=== PATIENT | male | born 1970 | race Caucasian/White ===

== ENCOUNTER 2016-09-30 03:26 | Inpatient (IN) | payer BC ==
[2016-09-30] MEDS ORDERED: ONDANSETRON 4 MG/2 ML VIAL ONE (03:36)
[2016-09-30] MEDS ORDERED: NORMAL SALINE 10 ML SYRINGE FLUSH IVP PRN ×2 (03:45→06:35)
[2016-09-30] MEDS ORDERED: Pantoprazole Inj 40 MG in Normal Saline Flush 10 ML IVP ONE (03:45)
[2016-09-30] MEDS ORDERED: HYDROmorphone 2 MG/1 ML IVP ONE (03:45)
[2016-09-30] MEDS ORDERED: Sodium Chloride 0.9% 1,000 ML PRIMARY IV ONE (03:45)
[2016-09-30] MEDS ORDERED: ONDANSETRON 4 MG/2 ML VIAL IVP ONE (03:45)
[2016-09-30] MEDS ORDERED: HYDROmorphone 2 MG/1 ML ONE (03:48)
[2016-09-30 03:53] LABS: EOSINOPHILS % (AUTO) 4.2 % (0-8); HEMATOCRIT 45.7 % (42.0-52.0); HEMOGLOBIN 15.8 g/dL (14.0-18.0); LYMPHOCYTES # (AUTO) 3.56 10*3/uL; MEAN CORPUSCULAR HEMOGLOBIN 29.5 PG (27-31); MEAN CORPUSCULAR HGB CONC 34.6 g/dL (33-37); MEAN CORPUSCULAR VOLUME 85.3 FL (80-90); MEAN PLATELET VOLUME 9.5 FL (7.4-12.2); MONOCYTES # (AUTO) 0.63 10*3/UL (0.3-0.8); MONOCYTES % (AUTO) 6.6 % (5-15); NEUTROPHILS # (AUTO) 4.89 10*3/UL; NEUTROPHILS % (AUTO) 50.9 % (50-80); PLATELET MORPHOLOGY COMMENT NORMAL MORPHOLOGY (NORM); RBC MORPHOLOGY COMMENT NORMAL MORPHOLOGY (NORM); RED BLOOD COUNT 5.36 10^6/uL (4.70-6.10); WBC MORPHOLOGY COMMENT NORMAL MORPHOLOGY (NORM)
[2016-09-30 03:59] LABS: BLOOD UREA NITROGEN 13 mg/dL (7-22); BUN/CREATININE RATIO 14.44 (6-20); CALCIUM 9.4 mg/dL (8.7-10.7); EST GLOMERULAR FILTRATION > 60 (>60 ml/min/1.73m(2)); LIPASE 922 IU/L (23-300); SERUM ALBUMIN 4.3 g/dL (3.5-4.8)
[2016-09-30 04:55] LABS: BILIRUBIN,URINE NEGATIVE (NEG); COLOR,URINE YELLOW; GLUCOSE, URINE (UA) NEGATIVE (NEG); NITRATE,URINE NEGATIVE (NEG); OCCULT BLOOD,URINE NEGATIVE (NEG); PROTEIN,URINE NEGATIVE (NEG); URINE SAMPLE TYPE CLEAN CATCH URINE; UROBILINOGEN,URINE 0.2 EU/dL (0.2)
[2016-09-30 04:56] LABS: CLARITY,URINE CLEAR (CLEAR)
--- NOTE | 2016-09-30 06:15 | PDOC ---
Abdomen/Flank HPI - General Chief Complaint: Abdomen Pain Stated Complaint: Right lower quadrant pain Date Seen by Provider: 09/30/16 Time Seen by Provider: 03:31 Source: POSITIVE: Patient, Spouse Exam Limitations: POSITIVE: No limitations Nurse's Notes Reviewed & Considered: Yes - History of Present Illness Initial Comments: The patient is a 45-year-old male. He presents to the emergency room complaining of an approximately 3 hour history of abdominal pain. He states his pain is most prominent in the right lower abdomen but he also has some pain in the epigastrium and the left lower abdomen. He has had 3 episodes of associated vomiting. He states his pain woke him up from sleep. Patient has no history of abdominal surgery. No known fevers. He last ate around 11 PM and had macaroni and cheese at that time. No known fevers. No melena, hematochezia, hematemesis, dysuria or hematuria. 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 DENIES: Activity, Bending, Coughing, Fall, Lifting, Near Fall, Rest, Sitting, Sleep, Standing, Turning, Emotional stress, Camping, Bad Food, Out of Country Travel, Other, Recent Surgery, Recent Trauma Modifying Factors: improves with: Vomiting Associated Symptoms: REPORTS: Nausea, Vomiting Similar Symptoms Previously: No Recent Care Received: REPORTS: Denies Any Prior Injuries Related to Current Complaint?: No - Patient Home Medications Home Medications: Home Medications Ibuprofen 200 mg PO PRN PRN 10/30/15 - Patient Allergies Allergies/Adverse Reactions: Allergies Allergy/AdvReac Type Severity Reaction Status Date / Time No Known Allergies Allergy Verified 09/30/16 03:31 Past Medical History - heen HEENT History: Denies History Cardiovascular History: Denies History Respiratory History: Denies History Gastrointestinal History: Denies History Genitourinary History: Denies History Endocrine History: Denies History Musculoskeletal History: Other (please comment) Prosthesis or Implant: No Additional Musculoskeletal History: RIGHT KNEE SCOPED Neurological History: Denies History Blood Disorders: Denies History Psychiatric History: Denies History History of Sexually Transmitted Diseases: No Male Reproductive History: Denies History Cancer History: Denies History In Past Year Been Physically Harmed or Verbally Threatened: No History of MDRO: No History of Other Communicable Diseases: No Tobacco Use: Never Smoker Alcohol Use: Occasionally Substance Use Type: None Previous Surgical History: Yes Type / Date of Surgery: RIGHT KNEE SCOPE Significant Family History: No pertinent family hx Past Medical History Reviewed: Reviewed - No Changes ROS - Limitations ROS Limitations: No Limitations Constitution: REPORTS: Denies Symptoms Cardiovascular: REPORTS: Denies Cardiac Symptoms Respiratory: REPORTS: Denies Resp Symptoms Neurological: REPORTS: Denies Neuro Symptoms Gastrointestinal: REPORTS: Abdominal Pain, Nausea, Vomitting Endocrine: REPORTS: Denies Symptoms Musculoskeletal: REPORTS: Denies MS Symptoms Genitourinary: REPORTS: Denies Symptoms Eyes: REPORTS: Denies Symptoms ENT: REPORTS: Denies Symptoms Skin: REPORTS: Denies Skin Symptoms Lympathic: REPORTS: Denies Lympathic Symptoms Immunologic: POSITIVE: Denies Symptoms Psychiatric: POSITIVE: Denies Psych Symptoms Abdominal/Flank Pain PE - General Appearance General Appearance: POSITIVE: Alert, Cooperative, No Acute Distress, No Evidence of Trauma - HEENT HEENT: POSITIVE: Head Inspection Nml, Eyes Inspection Nml, Ears Inspection Nml, Nose Inspection Nml, Oral/Dental Inspect. Nml, Pharynx Inspect. Nml, PERRL, EOMI - Neck Neck: POSITIVE: Normal Inspection, No Apparent Injury - Respiratory Respiratory: POSITIVE: No Respiratory Distress, Breath Sounds Normal, Chest Non- Tender - Cardiovascular Cardiovascular: POSITIVE: Regular Rate and Rhythm, Heart Sounds Normal, Equal Pulses, Strong Pulses Peripheral Pulses: Radial (R): 2+, Radial (L): 2+ - Chest Chest: POSITIVE: Non Tender - Abdomen Abdomen: Soft: (All Quadrants), Normal Bowel Sounds: (All Quadrants), No Splenomegaly: (All Quadrants), No Hepatomegaly: (All Quadrants), No Guarding: ( All Quadrants), No Rebound: (All Quadrants), No Palpable Pulse: (All Quadrants) , No Palpabale Mass: (All Quadrants), No Distention: (All Quadrants), No Rigidity: (All Quadrants), Tenderness Noted: (RUQ), (RLQ), (LLQ) Additional Abdominal Details: Abdominal examination shows bowel sounds to be present, but probably somewhat depressed. Patient complains of some pain on palpation over the epigastrium and left lower quadrant, but most prominently over the right lower quadrant. No masses organomegaly or rebound. - Back Back: POSITIVE: Normal Inspection. NEGATIVE: CVA Tenderness (R), CVA Tenderness (L) - Skin Skin: POSITIVE: Intact, Normal For Race, Warm, Dry, No Rash - Extremities Extremity: Non-Tender: (All Extremities), Normal ROM: (All Extremities), Normal Inspection: (All Extremities) - Neurological Neurological: POSITIVE: Oriented X3, lactation consultant Normal As Tested, Motor Normal, Sensation Normal, 5, 6 - Psychological Psychiatric: POSITIVE: Anxious Images - Complete Complete: 1 - Abdominal pain Abdomen Progress - Results Reviewed by me Xrays/CTs/US Reviewed by me: Yes Discussed with Radiologist: Yes Radiology Findings: CT scan of abdomen and pelvis with IV contrast is read by radiologist as showing inflammation in the gastric mucosa and focal colitis in the splenic flexure and"stricture and chronic constipation proximal to that.. There is reported to be some inflammation at T1. No perforation or abscess. "Gallbladder stone versus sludge". Lab Results Reviewed: Yes (elevated amylase and lipase) Lab Results:: Laboratory Results 09/30/16 09/30/16 Range/Units 03:50 04:45 WBC 9.60 (4.8-10.8) 10^3/uL RBC 5.36 (4.70-6.10) 10^6/uL Hgb 15.8 (14.0-18.0) g/dL Hct 45.7 (42.0-52.0) % MCV 85.3 (80-90) FL MCH 29.5 (27-31) PG MCHC 34.6 (33-37) g/dL RDW Std Deviation 42.2 (39-50) fL RDW Coeff of Eric 13.7 (11.5-14.5) % Plt Count 337 (140-350) 10*3/uL MPV 9.5 (7.4-12.2) FL Immature Gran % (Auto) 0.2 (0-5) % Neut % (Auto) 50.9 (50-80) % Lymph % (Auto) 37.1 (10-50) % Barry % (Auto) 6.6 (5-15) % Eos % (Auto) 4.2 (0-8) % Baso % (Auto) 1.0 (0-1) % Immature Gran # (Auto) 0.02 10*3/UL Neut # (Auto) 4.89 10*3/UL Lymph # (Auto) 3.56 10*3/uL Barry # (Auto) 0.63 (0.3-0.8) 10*3/UL Eos # (Auto) 0.40 10*3/UL Baso # (Auto) 0.10 10*3/UL WBC Morphology Comment Normal morphology (NORM) Plt Morphology Comment Normal morphology (NORM) RBC Morph Comment Normal morphology (NORM) Sodium 140 (135-145) meq/L Potassium 4.4 (3.8-5.2) meq/L Chloride 104 (98-112) meq/L Carbon Dioxide 24 (23-33) meq/L Anion Gap 12 (5-20) BUN 13 (7-22) mg/dL Creatinine 0.9 (0.70-1.50) mg/dL Estimated GFR > 60 (>60 ml/min/1.73m(2)) BUN/Creatinine Ratio 14.44 (6-20) Glucose 94 (78-110) mg/dL Calculated Osmolality 289.0 (267-292) mOsm/kg Calcium 9.4 (8.7-10.7) mg/dL Total Bilirubin 0.5 (0.3-1.2) mg/dL AST 34 (21-57) IU/L ALT 35 (21-72) IU/L Alkaline Phosphatase 70 (38-126) IU/L Total Protein 6.9 (6.1-8.0) g/dL Albumin 4.3 (3.5-4.8) g/dL Globulin 2.7 (2.50-4.10) g/dL Albumin/Globulin Ratio 1.50 (1.3-2.0) mg/g Amylase 154 H (30-110) U/L Lipase 922 H (23-300) IU/L Ur Collection Type Clean catch urine Urine Color Yellow Urine Clarity Clear (CLEAR) Urine pH 5.0 (5.0-8.5) Ur Specific [place] 1.020 (1.005-1.030) Urine Protein Negative (NEG) mg/dl Urine Glucose (UA) Negative (NEG) mg/dL Urine Ketones Negative (NEG) Urine Occult Blood Negative (NEG) Urine Nitrate Negative (NEG) Urine Bilirubin Negative (NEG) Urine Urobilinogen 0.2 (0.2) EU/dL Ur Leukocyte Esterase Negative (NEG) Ur Culture Indicated? Culture not set - Patient's Progress Pain Medication Addressed: POSITIVE: Yes (Patient given Dilaudid 2 mg IV with good relief of pain) School/Work Release Addressed: POSITIVE: Not Applicable Re-examine Time: 05:00 Re-Examine Comment: Patient received good relief of pain with Dilaudid. Patient was also hydrated with normal saline and given Protonix IV. Patient much more comfortable at this time. Re-Examine Time: 06:00 Re-Examine Comment: Case discussed with Dr. Payton, hospitalist. Patient admitted under his care. Status: POSITIVE: Improved, Re-Examined - Consult Counseled: POSITIVE: Patient, Family, RE: Lab Results, RE: Radiology Results, RE : DX, RE: Need for F/U Patient Care Time - Estimated PCT Patient Care Time (In Minutes): 50 Vital Signs - Recent Vital Signs Vital Signs: Vital Signs (Last 8 hours) Temp Pulse Resp BP Pulse Ox 09/30/16 03:27 97.7 F 71 22 134/97 97 - VS Reviewed Vital Signs Reviewed: Yes Discharge Clinical Impression: Acute pancreatitis Discharge Disposition: Admit to Inpatient Condition: Stable Date Decision to Admit to Inpatient: 09/30/16 Time Decision to Admit to Inpatient: 05:40
[2016-09-30] MEDS ORDERED: ACETAMINOPHEN 325 MG TABLET PO PRN (06:35)
[2016-09-30] MEDS ORDERED: LIDOCAINE W/ SODIUM BICARB 0.5 ML SYR SUBD PRN (06:35)
[2016-09-30] MEDS ORDERED: ONDANSETRON 4 MG/2 ML VIAL IVP PRN (06:35)
[2016-09-30] MEDS: Sodium Chloride 0.9% 1,000 ML PRIMARY IV SCH ×2 (07:21→14:27)
[2016-09-30] MEDS: HYDROmorphone 2 MG/1 ML IVP PRN ×2 (08:44→11:34)
[2016-09-30] MEDS ORDERED: Pantoprazole Inj 40 MG in Normal Saline Flush 10 ML IVP SCH (09:00)
[2016-09-30 09:48] VITALS: RESP 16
[2016-09-30] MEDS ORDERED: Prochlorperazine Edisylate Inj 10mg/2ml vial IVP PRN (14:21)
[2016-09-30 14:44] VITALS: TEMP 96.4
--- NOTE | 2016-09-30 14:51 | EKG ---
[address] [address] Measurements Intervals [place] Rate: 29 P: 21 MS: 155 QRS: 44 QRSD: 113 T: 13 QT: 518 QTc: 371 Interpretive Statements SEVERE SINUS BRADYCARDIA WITH SINUS ARRHYTHMIA MODERATE INTRAVENTRICULAR CONDUCTION DELAY [110+ ms QRS DURATION] No previous ECG available for comparison Electronically Signed On 09-30-16 15:06:28 MDT by Anselmo Landry [id number]
[2016-09-30] MEDS ORDERED: ATROPINE SULFATE ONE (14:53)
--- NOTE | 2016-09-30 15:16 | PDOC ---
History and Physical - History of Present Illness Date and Time of Service: 09/30/2016, 1035 Chief Complaint: Abdominal pain History of Present Illness: This a very pleasant 45-year-old male with no prior past medical history came in with acute onset of right lower quadrant abdominal pain that started at 1 AM. The pain was quite severe. He had no nausea or vomiting initially, but developed nausea and vomiting as the morning has progressed. Dilaudid controlled his pain. He's never had anything quite this severe before. He states that he had a colonoscopy in the past for some stomach problems but described it as negative. He was found to have an elevated lipase, but the CT scan did not show pancreatitis. In fact I reviewed the CT scan report and images with Dr. Landis over the phone, and it was essentially a negative CT scan with good visualization of the appendix. There was some stool in the cecum area. The patient has not had any fevers, but has felt a little chilled and hot and cold. The patient didn't try anything except to pass gas or have a bowel movement and that was not successful in controlling his pain. His last bowel movement was this morning and he last ate yesterday. He is admitted for further evaluation and management. Past Medical History Medical History: 1. None Surgical History: 1. Knee surgery on the right. 2. Colonoscopy which was described as negative. Pertinent Family History: No significant family history of diabetes or heart disease. Past Social History: Does not smoke. Drinks occasionally. Mild to moderate use. Is for 5 years. Has healthy children. Tobacco Use: Never Smoker Do you dip or chew tobacco: Yes Substance Use Type: None Alcohol Use: Occasionally Medication / Allergies Home Medications: Home Medications Medication Instructions Recorded Confirmed Type Ibuprofen 200 mg PO PRN PRN 10/30/15 09/30/16 History Allergies/Adverse Reactions: Allergies Allergy/AdvReac Type Severity Reaction Status Date / Time No Known Allergies Allergy Verified 09/30/16 06:36 Review of Systems - Review of Systems All Systems: Reviewed & No Additional Complaints Except as Stated (I did a 12 point review systems and it was negative for everything except for that which is discussed in the history of present illness.) Exam - Vitals Vital Signs: Vital Signs Temperature 96.4 F Temperature Source Temporal Artery Scan Pulse Rate [Apical] 74 Pulse Rate [Pulse Oximeter] 38 Respiratory Rate 16 Blood Pressure [Left Arm] 121/85 Pulse Ox 97 Oxygen Delivery Method Room Air Height 6 ft Weight 180 lb 2 oz - General General Appearance: POSITIVE: No Acute Distress, Cooperative - Head Head Exam: POSITIVE: Normal Inspection, Normocephalic, Atraumatic - Eye Eye Exam: POSITIVE: No Scleral Icterus - ENT ENT Exam: POSITIVE: Mucous Membranes Moist - Neck Neck Exam: POSITIVE: Normal Inspection, No Tenderness, No Thyromegaly - Respiratory Respiratory Exam: POSITIVE: Clear to Auscultation - Bilaterally, Breathing Non Labored, Normal to Percussion and Palpation - Cardiovascular Cardiovascular Exam: POSITIVE: No Murmur, No Clicks, No Gallops, No Rubs, Bradycardia, No JVD - GI/Abdominal GI/Abdominal Exam: POSITIVE: Normal Bowel Sounds, Non Distended, Soft Additional GI/Abdominal Exam Details: Slight tenderness right lower quadrant. - Rectal Rectal Exam: POSITIVE: Deferred - External Exam: POSITIVE: Deferred Exam: POSITIVE: Deferred - Extremities Extremities Exam: POSITIVE: No Clubbing Present, No Edema Present, No Cyanosis Present - Back Back Exam: POSITIVE: Normal Inspection, No CVA Tenderness - Neurological Neurological Exam: POSITIVE: Alert, Oriented x 3, No Facial Droop, Speech Intact / Clear, Moves All Extremities Equally - Psychiatric Psychiatric Exam: POSITIVE: Normal Affect, Normal Mood - Integumentary Integumentary Exam: POSITIVE: Normal Color, Warm, Dry, Intact - Central Line Examination Central Line Present on Admission: No Results - Labs CBC and BMP: 09/30/16 03:50 09/30/16 03:50 Labs - Last 24 Hours: Laboratory Results 09/30/16 09/30/16 Range/Units 03:50 04:45 WBC 9.60 (4.8-10.8) 10^3/uL RBC 5.36 (4.70-6.10) 10^6/uL Hgb 15.8 (14.0-18.0) g/dL Hct 45.7 (42.0-52.0) % MCV 85.3 (80-90) FL MCH 29.5 (27-31) PG MCHC 34.6 (33-37) g/dL RDW Std Deviation 42.2 (39-50) fL RDW Coeff of Eric 13.7 (11.5-14.5) % Plt Count 337 (140-350) 10*3/uL MPV 9.5 (7.4-12.2) FL Immature Gran % (Auto) 0.2 (0-5) % Neut % (Auto) 50.9 (50-80) % Lymph % (Auto) 37.1 (10-50) % Dale % (Auto) 6.6 (5-15) % Eos % (Auto) 4.2 (0-8) % Baso % (Auto) 1.0 (0-1) % Immature Gran # (Auto) 0.02 10*3/UL Neut # (Auto) 4.89 10*3/UL Lymph # (Auto) 3.56 10*3/uL Dale # (Auto) 0.63 (0.3-0.8) 10*3/UL Eos # (Auto) 0.40 10*3/UL Baso # (Auto) 0.10 10*3/UL WBC Morphology Comment Normal morphology (NORM) Plt Morphology Comment Normal morphology (NORM) RBC Morph Comment Normal morphology (NORM) Sodium 140 (135-145) meq/L Potassium 4.4 (3.8-5.2) meq/L Chloride 104 (98-112) meq/L Carbon Dioxide 24 (23-33) meq/L Anion Gap 12 (5-20) BUN 13 (7-22) mg/dL Creatinine 0.9 (0.70-1.50) mg/dL Estimated GFR > 60 (>60 ml/min/1.73m(2)) BUN/Creatinine Ratio 14.44 (6-20) Glucose 94 (78-110) mg/dL Calculated Osmolality 289.0 (267-292) mOsm/kg Calcium 9.4 (8.7-10.7) mg/dL Total Bilirubin 0.5 (0.3-1.2) mg/dL AST 34 (21-57) IU/L ALT 35 (21-72) IU/L Alkaline Phosphatase 70 (38-126) IU/L Total Protein 6.9 (6.1-8.0) g/dL Albumin 4.3 (3.5-4.8) g/dL Globulin 2.7 (2.50-4.10) g/dL Albumin/Globulin Ratio 1.50 (1.3-2.0) mg/g Amylase 154 H (30-110) U/L Lipase 922 H (23-300) IU/L Ur Collection Type Clean catch urine Urine Color Yellow Urine Clarity Clear (CLEAR) Urine pH 5.0 (5.0-8.5) Ur Specific [place] 1.020 (1.005-1.030) Urine Protein Negative (NEG) mg/dl Urine Glucose (UA) Negative (NEG) mg/dL Urine Ketones Negative (NEG) Urine Occult Blood Negative (NEG) Urine Nitrate Negative (NEG) Urine Bilirubin Negative (NEG) Urine Urobilinogen 0.2 (0.2) EU/dL Ur Leukocyte Esterase Negative (NEG) Ur Culture Indicated? Culture not set Assessment and Plan - Patient Problems (1) Abdominal pain Current Visit: Yes Status: Acute Qualifiers: Abdominal location: right lower quadrant Qualified Description: Right lower quadrant abdominal pain Qualifier Code(s): (R10.31) Right lower quadrant pain - Assessment / Plan Additional Assessment/Plan Details: Admit the patient. Discussed CT scan with radiology as mentioned in the history of present illness , and may need evaluation for outpatient colonoscopy. Pain control with a parental medications, nothing by mouth status, and antiemetics as necessary. The patient's mentioned that he was bradycardic, but at this time he is around the 40s range. I told the patient and his 5 come back later to discuss further with them. Photo / Body Diagrams - Uploaded Photos Uploaded Photos:
[2016-09-30] MEDS ORDERED: ASPIRIN 81 MG (BABY) CHEWABLE TABLET ONE (15:23)
--- NOTE | 2016-09-30 15:23 | DCSUMMARY ---
Hospitalization Summary Admit Date: 09/30/16 Discharge Date: 09/30/16 Primary Diagnosis:: symptomatic bradycardia unclear etiology Hospital Course: This very pleasant 45-year-old male that was admitted earlier this morning in the setting of abdominal pain was felt to be pancreatitis earlier. After further review of the CT scan, it is clear that this is not the case. His lipase is elevated although the etiology of that is not entirely clear. The patient had right-sided abdominal pain, but has progressively developed nausea and vomiting and his heart rate actually dropped down to 29. He was clammy and cold, denied chest pain. An EKG was done and it showed severe bradycardia with non-amplitude specific Q waves in leads 1 and aVL. I have drawn a troponin which is pending at this time. We've given him atropine 0.5 mg 1 and have bolused and started bolusing IV fluids. He does not appear hypotensive. He complains mostly of just not feeling well. I spoke to cardiology, Dr. Philip in [place], and he agreed to accept the patient for further evaluation and management. In the meantime we are going to put him on heparin, get him an aspirin, and also get him a dose of glucagon. Blood sugar at bedside was 101. Pacer pads have been attached the patient and they will remain on him through the duration of this transfer. Assessment and Plan: 1. As per discharge assessments noted 2. Disposition: Patient is discharged in [facility] [place]. 3. Condition on discharge, stable and improved. 4. Diet: Nothing by mouth 5. Activities: resume normal activities 6. Follow-Up: 1. We will arrange a follow-up with Dr. Rodas for consideration of a screening colonoscopy with the abdominal pain, however this could be a cardiac issue 2. 7. Medications at the Time of Discharge: Active Medications Generic Name Dose Route Start Last Admin Trade Name Freq PRN Reason Stop Dose Admin Acetaminophen 650 mg 09/30/16 06:35 Tylenol PO Q6H PRN Pain or Fever Aspirin 162 mg 09/30/16 15:30 Aspirin Chewable Tab PO 09/30/16 15:31 ONCE ONE Glucagon 1 mg 09/30/16 15:30 Glucagen IVP 09/30/16 15:31 ONCE ONE Heparin Sodium (Porcine) 5,000 unit 09/30/16 15:30 Heparin Inj IV 09/30/16 15:31 ONCE ONE Hydromorphone HCl 1 mg 09/30/16 06:35 09/30/16 11:34 Dilaudid Inj IVP 1 mg Q3H PRN Administration Pain Sodium Chloride 1,000 mls @ 125 mls/hr 09/30/16 06:35 09/30/16 14:27 Normal Saline PRIMARY IV 125 mls/hr .Q8H NOHELIA Administration Sodium Chloride 25 mls @ 200 mls/hr 09/30/16 06:35 Normal Saline 0.9% IV .Post Infusion PRN No Primary IV for Flush ONLY Pantoprazole Sodium 40 mg/ 10 mls @ 5 mls/min 09/30/16 09:00 09/30/16 08:39 Sodium Chloride IVP 5 mls/min DAILY NOHELIA Administration Heparin Sodium/Dextrose 500 mls @ 19.609 mls/hr 09/30/16 15:30 Heparin (Premix) IV .Per Protocol NOHELIA Protocol 12 UNIT/KG/HR Lidocaine HCl 0.5 ml 09/30/16 06:35 Lidocaine Buffered Inj SUBD ONCE PRN IV Starts Ondansetron HCl 4 mg 09/30/16 06:35 09/30/16 12:17 Zofran Inj IVP 4 mg Q4H PRN Administration NAUSEA / VOMITING Prochlorperazine Edisylate 5 mg 09/30/16 14:21 09/30/16 14:29 Compazine Inj IVP 5 mg Q4H PRN Administration Nausea and Vomiting Sodium Chloride 5 - 20 ml 09/30/16 06:35 Saline Flush IVP BID PRN Flush 8. Time, care, counseling and coordination of care for this discharge is greater than 30 minutes. Exam - Vitals Vital Signs: Vital Signs Vital Signs - Last Taken Temperature 96.4 F L 09/30/16 14:38 Pulse Rate 38 L 09/30/16 14:38 Respiratory Rate 16 09/30/16 14:38 Blood Pressure 121/85 09/30/16 14:38 Pulse Ox 97 09/30/16 14:38 - General General Appearance: POSITIVE: Mild Distress Additional General Exam Details: Clammy to touch, looks ill but not toxic. - ENT ENT Exam: POSITIVE: Mucous Membranes Moist - Respiratory Respiratory Exam: POSITIVE: Clear to Auscultation - Bilaterally, Breathing Non Labored - Cardiovascular Cardiovascular Exam: POSITIVE: No Murmur, No Clicks, No Gallops, No Rubs, Bradycardia, No JVD - GI/Abdominal GI/Abdominal Exam: POSITIVE: Normal Bowel Sounds, Non Distended, Soft - Rectal Rectal Exam: POSITIVE: Deferred - External Exam: POSITIVE: Deferred Exam: POSITIVE: Deferred - Extremities Extremities Exam: POSITIVE: No Clubbing Present, No Edema Present, No Cyanosis Present - Neurological Neurological Exam: POSITIVE: Alert, Oriented x 3, No Facial Droop, Speech Intact / Clear, Moves All Extremities Equally Data Perinent Studies: Troponin is pending. EKG shows bradycardia, heart rate of 29, Q waves in 1 and aVL although amplitude sams are nonspecific. QT time is 513 and QTc is normal at 341 Patient Problems - Patient Problem List (1) Bradycardia Current Visit: Yes Status: Acute (2) Abdominal pain Current Visit: Yes Status: Acute Qualifiers: Abdominal location: right lower quadrant Qualified Description: Right lower quadrant abdominal pain Qualifier Code(s): (R10.31) Right lower quadrant pain
[2016-09-30] MEDS ORDERED: ASPIRIN 81 MG (BABY) CHEWABLE TABLET PO ONE (15:30)
[2016-09-30] MEDS ORDERED: Glucagon Inj Vial 1 MG/ML VIAL IVP ONE (15:30)
[2016-09-30] MEDS ORDERED: Sodium Chloride 0.9% 1,000 ML PRIMARY IV SCH ×2 (15:30→16:30)
[2016-09-30] MEDS ORDERED: HEPARIN 5000 UNIT/1 ML IV ONE (15:30)
--- NOTE | 2016-09-30 15:51 | EKG ---
[address] [address] Measurements Intervals [place] Rate: 58 P: 54 KS: 166 QRS: 40 QRSD: 105 T: 9 QT: 442 QTc: 438 Interpretive Statements SINUS BRADYCARDIA WITH SINUS ARRHYTHMIA ST CHANGE OF EARLY REPOLARIZATION Compared to ECG 09/30/2016 14:49:35 Intraventricular conduction delay no longer present Electronically Signed On 10-04-16 16:27:00 MDT by Anselmo Landry [email or web address]
[2016-09-30] MEDS ORDERED: ATROPINE SULFATE IVP ONE (16:15)
== END 2016-09-30 16:21 | disposition short-term general hospital (02) | DRG 308 ==
LOC: ER 03:26 → MED/SURG 06:13
PROVIDERS: ADMIT Family Medicine; ATTEND Family Medicine
DX: R00.1 Bradycardia, unspecified (principal); K85.90 Acute pancreatitis without necrosis or infection, unspecified; R10.31 Right lower quadrant pain
CPT/HCPCS: 36415; 74177; 80053; 81003; 82150; 82553; 83615; 83690; 84484; 85025; 93005; 93010; 96361; 96374; 96375; 99285; J0461; J0780; J1170; J1644; J2405; J3490; J7030

== ENCOUNTER 2016-11-11 07:51 | Day surgery (SDC) | payer BC ==
[~2016-11-11 07:51] MED LIST: LIDOCAINE W/ SODIUM BICARB 0.5 ML SYR ONE; Lactated Ringers 1,000 ML PRIMARY IV ONE
[2016-11-11 08:14] VITALS: RESP 12
--- NOTE | 2016-11-11 10:07 | GEN.OPNOTE ---
EGD / Colonoscopy Report Surgery Date: 11/11/16 Preoperative Diagnosis: Right-sided abdominal pain. Chronic gastroesophageal reflux disease. Change in bowel habits. Weight loss. Postoperative Diagnosis: Same. Probable reflux on endoscopy. Small rectal polyp. Procedure: #1 esophagogastroduodenoscopy with biopsy. #2 complete colonoscopy with biopsy and destruction of small rectal polyp. Surgeon: Medhat Rodas MD Anesthesia Provider: Romelia Miranda CRNA Anesthesia Type: MAC Indications: Please see preoperative diagnosis. Patient had a normal CT scan abdomen and pelvis and a normal gallbladder ultrasound proceed with upper and lower endoscopy. EGD Findings: Esophagus: [Normal] GE Junction : [Mild inflammation] Fundus : [Normal] Body : [Normal] Prepyloric : [Mild erythema] Small Intestine : [Normal] A lubricated flexible upper endoscope was inserted and passed through the esophagus and stomach into the duodenum. The duodenum and duodenal bulb were unremarkable. Pyloric channel was patent. Other than some mild antral erythema the entire gastric mucosa was unremarkable. Antral biopsies were taken. Hemostasis was assured. The scope was withdrawn into the distal esophagus. There is some mild irregularity at the Z line. Multiple biopsies were taken. Hemostasis was assured. Air was aspirated. The scope was withdrawn through the remainder of a normal-appearing esophagus and brought through the hypopharynx under suction completing that portion of the procedure. Colonoscopy Findings: Prep : [Very good] Cecum : [Normal] Ascending : [Normal] Transverse : [Normal] Sigmoid : [Normal] Rectum : [Small polyp biopsied and destroyed] Digital Rectal Exam : [Prostate firm slightly enlarged but nonnodular.] Anoscopy:[Superficial crack posteriorly. Not a well-established fissure] Terminal ileum:[Visually unremarkable] A lubricated flexible colonoscope was inserted and passed to the blind end of the cecum. The terminal ileum was intubated and appeared normal. The scope was withdrawn into the cecum. The appendiceal orifice and ileocecal valve were clearly seen. Air was aspirated as the scope was withdrawn. Exception of a small rectal polyp which was biopsied and destroyed the entire colonoscopy was normal without polyp, tumor, neoplastic mass, infectious or inflammatory process. The scope was withdrawn completing the procedure. Patient tolerated all aspects of the procedure well without complication. He was taken to outpatient surgery in stable condition. We will call the biopsy results when available. Follow-up will be in my office on an as-needed basis. Consider a HIDA scan of the gallbladder for his right- sided abdominal pain but it does not really sound biliary in nature. We will recommend 1% hydrocortisone to the perianal skin twice a day for 5 days to help heal the superficial crack.
[2016-11-11 11:53] VITALS: TEMP 97
== END 2016-11-11 10:50 | disposition home or self-care (01) ==
LOC: SDSC 07:51
PROVIDERS: ATTEND Surgery
DX: K21.9 Gastro-esophageal reflux disease without esophagitis (principal); R19.4 Change in bowel habit; R63.4 Abnormal weight loss; K62.1 Rectal polyp
CPT/HCPCS: 43239; 45384; J2704; J7120

== ENCOUNTER 2017-01-08 20:11 | Emergency (ER) | payer BC ==
[2017-01-08] MEDS ORDERED: Sodium Chloride 0.9% 1,000 ML PRIMARY IV ONE (20:23)
[2017-01-08] MEDS ORDERED: MORPHINE SULFATE 4 MG/1 ML IVP ONE ×2 (20:23→22:25)
[2017-01-08] MEDS ORDERED: ONDANSETRON 4 MG/2 ML VIAL IVP ONE (20:23)
--- NOTE | 2017-01-08 20:27 | PDOC ---
Abdomen/Flank HPI - General Chief Complaint: Abdomen Pain Stated Complaint: flank pain Date Seen by Provider: 01/08/17 Time Seen by Provider: 20:24 Source: POSITIVE: Patient Exam Limitations: POSITIVE: No limitations Nurse's Notes Reviewed & Considered: Yes - History of Present Illness Initial Comments: This is a pleasant 46-year-old male who is complaining of right upper quadrant pain. Patient with right upper quadrant pain at the costal margin that began yesterday with diarrhea, nausea and vomiting. He denies any fever chills or sweats, no headache, no chest pain or shortness of breath, no hematuria or dysuria, no rashes. Body Location Affected: REPORTS: Abdomen Timing: REPORTS: Abrupt Duration: >24 hours Severity: Severe Quality: REPORTS: Cramping, "Pain", Stabbing, Throbbing Abdominal Pain Onset Location: REPORTS: RUQ Abdominal Pain Radiation: REPORTS: Epigastric, Periumbilical Context: REPORTS: None Modifying Factors: improves with: Nothing Associated Symptoms: REPORTS: Nausea, Vomiting, Diarrhea Similar Symptoms Previously: No Recent Care Received: REPORTS: Denies Any Prior Injuries Related to Current Complaint?: No - Patient Home Medications Home Medications: Home Medications Ibuprofen 2 - 3 mg PO DAILY PRN 10/30/15 Levothyroxine Sodium 1 tab PO DAILY tab 10/19/16 Pantoprazole Sodium 1 tab PO BID #90 tab 11/17/16 - Patient Allergies Allergies/Adverse Reactions: Allergies Allergy/AdvReac Type Severity Reaction Status Date / Time No Known Allergies Allergy Unverified 11/17/16 14:09 Past Medical History - heen HEENT History: Denies History Cardiovascular History:  Additional Cardiovasular History: BRADYCARDIA, SEE CARDIAC NOTE FROM 11/03/16, [facility] Respiratory History: Denies History Gastrointestinal History:  Additional Gastrointestinal History: ABDOMINAL PAIN/GERD/CHANGE IN BM'S Genitourinary History: Denies History Endocrine History: Hypothyroidism Musculoskeletal History: Back Pain, Other (please comment) Prosthesis or Implant: No Additional Musculoskeletal History: RIGHT KNEE SCOPED Neurological History: Denies History Blood Disorders: Denies History Psychiatric History: Denies History History of Sexually Transmitted Diseases: No Cancer History: Denies History History of MDRO: No History of Other Communicable Diseases: No Alcohol Use: Occasionally Substance Use Type: None Previous Surgical History: Yes Type / Date of Surgery: RIGHT KNEE SCOPE/LEFT SMALL FINGER MALLET SX/ COLONOSCOPY Anesthesia Reactions: No Malignant Hyperthermia: No Significant Family History: No pertinent family hx ROS - Limitations ROS Limitations: No Limitations Constitution: REPORTS: Denies Symptoms Cardiovascular: REPORTS: Denies Cardiac Symptoms Respiratory: REPORTS: Denies Resp Symptoms Neurological: REPORTS: Denies Neuro Symptoms Gastrointestinal: REPORTS: Abdominal Pain, Nausea, Vomitting, Diarrhea Endocrine: REPORTS: Denies Symptoms Musculoskeletal: REPORTS: Denies MS Symptoms Genitourinary: REPORTS: Denies Symptoms Eyes: REPORTS: Denies Symptoms ENT: REPORTS: Denies Symptoms Skin: REPORTS: Denies Skin Symptoms Lympathic: REPORTS: Denies Lympathic Symptoms Immunologic: POSITIVE: Denies Symptoms Psychiatric: POSITIVE: Denies Psych Symptoms Abdominal/Flank Pain PE - General Appearance General Appearance: POSITIVE: Alert, Cooperative, No Evidence of Trauma, Mild Distress - HEENT HEENT: POSITIVE: Head Inspection Nml, Eyes Inspection Nml, Ears Inspection Nml, Nose Inspection Nml, Oral/Dental Inspect. Nml, Pharynx Inspect. Nml, PERRL, EOMI - Neck Neck: POSITIVE: Normal Inspection, No Apparent Injury - Respiratory Respiratory: POSITIVE: No Respiratory Distress, Breath Sounds Normal, Chest Non- Tender - Cardiovascular Cardiovascular: POSITIVE: Regular Rate and Rhythm, Heart Sounds Normal - Chest Chest: POSITIVE: Non Tender - Abdomen Abdomen: Soft: (All Quadrants), Normal Bowel Sounds: (All Quadrants), Denies Tenderness: (LLQ), (RLQ), (LUQ), No Splenomegaly: (All Quadrants), No Hepatomegaly: (All Quadrants), No Guarding: (RUQ), No Rebound: (All Quadrants), No Palpable Pulse: (All Quadrants), No Palpabale Mass: (All Quadrants), No Distention: (All Quadrants), No Rigidity: (All Quadrants), Tenderness Noted: ( RUQ), Guarding: (RUQ), Rebound: (RUQ) - Back Back: POSITIVE: Normal Inspection - Skin Skin: POSITIVE: Intact, Normal For Race, Warm, Dry, No Rash - Extremities Extremity: Non-Tender: (All Extremities), Normal ROM: (All Extremities), Normal Inspection: (All Extremities), Pelvis Stable: (All Extremities) - Neurological Neurological: POSITIVE: Oriented X3, digital imager Normal As Tested, Motor Normal, Sensation Normal, 5, 6 Abdomen Progress - Results Reviewed by me Xrays/CTs/US Reviewed by me: Yes Discussed with Radiologist: Yes Lab Results Reviewed: Yes Lab Results:: Laboratory Results 01/08/17 Range/Units 20:32 WBC 10.81 H (4.8-10.8) 10^3/uL RBC 5.29 (4.70-6.10) 10^6/uL Hgb 16.0 (14.0-18.0) g/dL Hct 44.4 (42.0-52.0) % MCV 83.9 (80-90) FL MCH 30.2 (27-31) PG MCHC 36.0 (33-37) g/dL RDW Std Deviation 41.5 (39-50) fL RDW Coeff of Eric 13.4 (11.5-14.5) % Plt Count 362 H (140-350) 10*3/uL MPV 9.5 (7.4-12.2) FL Immature Gran % (Auto) 0.2 (0-5) % Neut % (Auto) 88.9 H (50-80) % Lymph % (Auto) 5.6 L (10-50) % [place] % (Auto) 4.4 L (5-15) % Eos % (Auto) 0.7 (0-8) % Baso % (Auto) 0.2 (0-1) % Immature Gran # (Auto) 0.02 10*3/UL Neut # (Auto) 9.61 10*3/UL Lymph # (Auto) 0.60 10*3/uL [place] # (Auto) 0.48 (0.3-0.8) 10*3/UL Eos # (Auto) 0.08 10*3/UL Baso # (Auto) 0.02 10*3/UL WBC Morphology Comment Normal morphology (NORM) Plt Morphology Comment Normal morphology (NORM) RBC Morph Comment Normal morphology (NORM) Sodium 138 (135-145) meq/L Potassium 3.7 L (3.8-5.2) meq/L Chloride 107 (98-112) meq/L Carbon Dioxide 17 L (23-33) meq/L Anion Gap 14 (5-20) BUN 16 (7-22) mg/dL Creatinine 1.0 (0.70-1.50) mg/dL Estimated GFR > 60 (>60 ml/min/1.73m(2)) BUN/Creatinine Ratio 16.00 (6-20) Glucose 131 H (78-110) mg/dL Calculated Osmolality 288.0 (267-292) mOsm/kg Calcium 9.5 (8.7-10.7) mg/dL Magnesium 1.9 (1.6-2.4) mg/dL Total Bilirubin 1.0 (0.3-1.2) mg/dL AST 32 (21-57) IU/L ALT 46 (21-72) IU/L Alkaline Phosphatase 69 (38-126) IU/L C-Reactive Protein 0.8 (0.0-0.9) mg/dL Total Protein 7.3 (6.1-8.0) g/dL Albumin 4.7 (3.5-4.8) g/dL Globulin 2.6 (2.50-4.10) g/dL Albumin/Globulin Ratio 1.80 (1.3-2.0) mg/g Amylase 59 (30-110) U/L Lipase 59 (23-300) IU/L - Patient's Progress Pain Medication Addressed: POSITIVE: Yes Re-examine Time: 23:40 Status: POSITIVE: Improved MDM / ED Course: Patient was examined, an IV started, blood drawn and sent to the lab for studies , radiographic examinations were obtained. Patient received 2 L of normal saline, morphine sulfate, and Zofran. His vomiting significantly improved. Findings: CT scan of his abdomen shows no acute intra-abdominal abnormalities. Ultrasound of his hepatobiliary system shows no acute abnormalities. CBC is unremarkable, comprehensive metabolic panel is unremarkable. Lipase and amylase are normal. Assessment: #1 abdominal pain, right upper quadrant. #2 nausea and vomiting. Plan: Discharge home, Bruce No. 2 provided, #10 prescribed, instructions for clear liquids for 24 hours and advance diet slowly. Follow-up with primary care physician and consider consultation with gastroenterology. - Consult Counseled: POSITIVE: Patient, Family, RE: Lab Results, RE: Radiology Results, RE : DX, RE: Need for F/U Patient Care Time - Estimated PCT Patient Care Time (In Minutes): 45 Vital Signs - Recent Vital Signs Vital Signs: Vital Signs (Last 8 hours) Temp Pulse Resp Pulse Ox 01/08/17 20:13 98.6 F 81 16 97 - VS Reviewed Vital Signs Reviewed: Yes Discharge Clinical Impression: Abdominal pain, Nausea and vomiting Discharge Disposition: Discharged to Home Condition: Stable Patient Instructions Given at Discharge: Acute Nausea and Vomiting (ED), Acute Abdominal Pain (ED)
[2017-01-08 20:39] LABS: BASOPHILS # (AUTO) 0.02 10*3/UL; BASOPHILS % (AUTO) 0.2 % (0-1); EOSINOPHILS # (AUTO) 0.08 10*3/UL; EOSINOPHILS % (AUTO) 0.7 % (0-8); HEMATOCRIT 44.4 % (42.0-52.0); MEAN CORPUSCULAR HEMOGLOBIN 30.2 PG (27-31); MEAN CORPUSCULAR VOLUME 83.9 FL (80-90); MEAN PLATELET VOLUME 9.5 FL (7.4-12.2); MONOCYTES # (AUTO) 0.48 10*3/UL (0.3-0.8); MONOCYTES % (AUTO) 4.4 % (5-15); NEUTROPHILS # (AUTO) 9.61 10*3/UL; NEUTROPHILS % (AUTO) 88.9 % (50-80); RED BLOOD COUNT 5.29 10^6/uL (4.70-6.10)
[2017-01-08 20:48] LABS: PLATELET MORPHOLOGY COMMENT NORMAL MORPHOLOGY (NORM); RBC MORPHOLOGY COMMENT NORMAL MORPHOLOGY (NORM); WBC MORPHOLOGY COMMENT NORMAL MORPHOLOGY (NORM)
[2017-01-08 20:52] LABS: BLOOD UREA NITROGEN 16 mg/dL (7-22); C-REACTIVE PROTEIN 0.8 mg/dL (0.0-0.9); CALCIUM 9.5 mg/dL (8.7-10.7); EST GLOMERULAR FILTRATION > 60 (>60 ml/min/1.73m(2)); MAGNESIUM 1.9 mg/dL (1.6-2.4); SERUM ALBUMIN 4.7 g/dL (3.5-4.8)
[2017-01-08 21:15] LABS: LIPASE 59 IU/L (23-300)
--- NOTE | 2017-01-08 21:54 | DI ---
CLINICAL HISTORY: Right upper quadrant pain. PREVIOUS EXAM: None available. FINDINGS/TECHNIQUE: Multiple helically acquired CT images are seen through the abdomen and pelvis fol lowing the intravenous administration of contrast. The lung bases are clear. The liver, spleen, pancreas, adrenals and kidneys are unremarkable. The appendix is normal. There is a subcentimeter hypodensity within the liver too small to characterize. The gallbladder is n ormal. The urinary bladder is unremarkable. There is no free air nor free fluid. Large and small bowel loops are not well violated on this exam. IMPRESSION: 1. No acute intra-abdominal pathology.
[2017-01-08 22:01] VITALS: RESP 16; TEMP 98.6
[2017-01-08] MEDS: NORMAL SALINE 1000 ML IV SCH (23:25)
--- NOTE | 2017-01-08 23:32 | DI ---
HISTORY: Right upper quadrant pain. COMPARISON: None. TECHNIQUE: Ultrasound of the right upper quadrant was performed. FINDINGS: The head and body of the pancreas are normal. The tail was not imaged due to overlying roberth l gas. The liver is normal in size, shape and echotexture and measures up to 15.5 cm. There is no cholelithiasis, gallbladder wall thickening or pericholecystic fluid. There was a negativ e sonographic. The common bile duct measures 1 mm in diameter. The proximal abdominal aorta measures up to 2.2 cm in AP diameter, midabdominal aorta 2.0 cm, distal abdominal aorta 1.8 cm. The right kidney measures 10.6 x 4.3 x 4.5 cm. No hydronephrosis or mass are seen within the right ki dney. IMPRESSION: 1. There are no findings to suggest acute cholecystitis. There is no cholelithiasis. NOTE: The interpreting Radiologist was not present at the time of ultrasound interrogation.
[2017-01-08] MEDS ORDERED: Ondansetron ODT Tab 8 MG TAB PO ONE (23:45)
[2017-01-08] MEDS ORDERED: HYDROcodone-APAP 5 MG -325 MG TABLET PO SCH (23:45)
[2017-01-08 23:46] LABS: BILIRUBIN,URINE NEGATIVE (NEG); CLARITY,URINE CLEAR (CLEAR); COLOR,URINE YELLOW; GLUCOSE, URINE (UA) NEGATIVE (NEG); NITRATE,URINE NEGATIVE (NEG); OCCULT BLOOD,URINE Trace-lysed (NEG); PROTEIN,URINE NEGATIVE (NEG); UROBILINOGEN,URINE 0.2 EU/dL (0.2)
[2017-01-08 23:51] LABS: BACTERIA,URINE RARE; RBC,URINE 0-1 /hpf; URINE SAMPLE TYPE CLEAN CATCH URINE; WBC,URINE 0
== END 2017-01-09 00:01 | disposition home or self-care (01) ==
LOC: ER 20:11
DX: R10.11 Right upper quadrant pain (principal); R11.2 Nausea with vomiting, unspecified; R10.13 Epigastric pain; R19.7 Diarrhea, unspecified
CPT/HCPCS: 74177; 76705; 80053; 81001; 81003; 82150; 83690; 83735; 85025; 86140; 96361; 96374; 96375; 96376; 99283; 99284; J2270; J2405; Q0162; J7030

== ENCOUNTER → 2017-01-13 | Outpatient (CLI) | payer BC ==
--- NOTE | 2017-01-13 17:16 | DI ---
Tc-99 HIDA BILIARY SCAN WITH FATTY MEAL CHALLENGE, 01/13/2017 12:59 PM : Clinical History: Left upper quadrant pain. Previous Related Exam: Limited abdomen performed January 08, 2017 The patient was injected with 6.6 mCi of Tc-99 Choletec, a HIDA compound. An anterior dynamic flow study was performed followed by sequential anterior imaging at one minute in tervals out to 60 minutes. The patient was then given a 38 gm fatty challenge and sequential anterior imaging at one minute inte rvals was carried out to 60 minutes for the gall bladder ejection phase. The patient did not experience symptoms following the fatty meal challenge. Gall bladder ejection fraction was calculated to be 47 %. Reading: Normal excretory Tc-99 HIDA biliary kinetics.
== END ==
LOC: NM 12:56
PROVIDERS: ATTEND Surgery
DX: R10.12 Left upper quadrant pain (principal)
CPT/HCPCS: 78227; A9537